=== PATIENT | male | born 1945 | race Caucasian/White ===

== ENCOUNTER 2018-05-23 10:30 | Day surgery (SDC) | payer OTHER ==
[2018-05-23 12:55] LABS: BEDSIDE GLUCOSE 154 MG/DL (83-110)
[2018-05-23] MEDS ORDERED: NS 1,000 ML IV (13:15)
[2018-05-23] MEDS ORDERED: PROPOFOL 500 MG/50 ML VIAL As Ordered (13:24)
[2018-05-23] MEDS ORDERED: LIDOCAINE 2% INJ 100 MG/5 ML SDV (FOR ANES.) As Ordered (13:24)
[2018-05-23] MEDS ORDERED: fentaNYL 100 MCG/2 ML INJECTION (J3010) As Ordered (13:24)
== END 2018-05-23 14:45 | disposition home or self-care (01) ==
LOC: M OPP 10:30
DX: Z12.11 Encounter for screening for malignant neoplasm of colon (principal); Z86.010 Personal history of colon polyps; D12.3 Benign neoplasm of transverse colon; D12.5 Benign neoplasm of sigmoid colon; K64.8 Other hemorrhoids; D50.9 Iron deficiency anemia, unspecified; K29.70 Gastritis, unspecified, without bleeding; I10 Essential (primary) hypertension; E78.5 Hyperlipidemia, unspecified; E11.9 Type 2 diabetes mellitus without complications; K21.9 Gastro-esophageal reflux disease without esophagitis; R12 Heartburn; M19.90 Unspecified osteoarthritis, unspecified site; R06.02 Shortness of breath; Z96.651 Presence of right artificial knee joint; Z87.891 Personal history of nicotine dependence; Z79.82 Long term (current) use of aspirin; Z79.899 Other long term (current) drug therapy; Z79.4 Long term (current) use of insulin
CPT/HCPCS: 45385

== ENCOUNTER 2018-10-24 06:38 | Day surgery (SDC) | payer OTHER ==
[~2018-10-24] VITALS: Ht 182.9 cm; Wt 128.4 kg
[~2018-10-24 06:38] MED LIST: ASPI81TA85 PO; HYDR25TAB PO; INSUH10VL SC; LANTINJ4 SC; METF850T4 PO; RANI150T PO; SIMV80TA13 PO; VALS1TAB48 PO; VICT18IN SC; VITA-176 PO
[2018-10-24] MEDS ORDERED: NS 1,000 ML IV ONE (07:00)
[2018-10-24] MEDS ORDERED: PROPOFOL 200 MG/20 ML VIAL As Ordered ONE (07:08)
--- NOTE | 2018-10-24 07:51 | ROOR ---
Patient Name: Everton Campos Procedure Date: 10/24/2018 7:29 AM Date of : 1945 Age: 73 Room: [facility] Gender: Male Note Status: Finalized Procedure: Colonoscopy Indications: High risk colon cancer surveillance: Personal history of colonic polyps Providers: Conrad Renee DO Referring MD: Conrad Renee DO Requesting Provider: Medicines: Propofol per Anesthesia Complications: No immediate complications. Procedure: Pre-Anesthesia Assessment: - Prior to the procedure, a History and Physical was performed, and patient medications and allergies were reviewed. The patient is competent. The risks and benefits of the procedure and the sedation options and risks were discussed with the patient. All questions were answered and informed consent was obtained. Patient identification and proposed procedure were verified by the physician, the nurse, the anesthesiologist and the microcomputer technician in the endoscopy suite. Mental Status Examination: alert and oriented. Airway Examination: normal oropharyngeal airway and neck mobility. Respiratory Examination: clear to auscultation. CV Examination: normal. Prophylactic Antibiotics: The patient does not require prophylactic antibiotics. Prior Anticoagulants: The patient has taken no previous anticoagulant or antiplatelet agents. ASA Grade Assessment: III - A patient with severe systemic disease. After reviewing the risks and benefits, the patient was deemed in satisfactory condition to undergo the procedure. The anesthesia plan was to use monitored anesthesia care (MAC). Immediately prior to administration of medications, the patient was re-assessed for adequacy to receive sedatives. The heart rate, respiratory rate, oxygen saturations, blood pressure, adequacy of pulmonary ventilation, and response to care were monitored throughout the procedure. The physical status of the patient was re-assessed after the procedure. The Colonoscope was introduced through the anus and advanced to the cecum, identified by the appendiceal orifice, ileocecal valve and palpation. The colonoscopy was performed without difficulty. The patient tolerated the procedure well. Findings: The perianal exam findings include non-thrombosed internal hemorrhoids and internal hemorrhoids (Grade I). Multiple small and large-mouthed diverticula were found in the sigmoid colon, descending colon and transverse colon. A less than 5 mm polyp was found in the transverse colon. The polyp was hyperplastic. The polyp was removed with a jumbo cold forceps. Resection and retrieval were complete. Estimated blood loss was minimal. The exam was otherwise without abnormality on direct and retroflexion views. Impression: - Non-thrombosed internal hemorrhoids and internal hemorrhoids (Grade I) found on perianal exam. - Diverticulosis in the sigmoid colon, in the descending colon and in the transverse colon. - One less than 5 mm polyp in the transverse colon, removed with a jumbo cold forceps. Resected and retrieved. - The examination was otherwise normal on direct and retroflexion views. Recommendation: - Patient has a contact number available for emergencies. The signs and symptoms of potential delayed complications were discussed with the patient. Return to normal activities tomorrow. Written discharge instructions were provided to the patient. - Repeat colonoscopy in 5-10 years for surveillance based on pathology results. - Return to my office PRN. - Telephone my office for pathology results in 1 week. Conrad Renee DO 10/24/2018 7:51:52 AM This report has been signed electronically. Number of Addenda: 0 Note Initiated On: 10/24/2018 7:29 AM Estimated Blood Loss: Estimated blood loss was minimal.
[2018-10-24 08:16] VITALS: BP 118/55
== END 2018-10-24 08:30 | disposition home or self-care (01) ==
LOC: M OPP 06:38
PROVIDERS: ATTEND Surgery
DX: Z12.11 Encounter for screening for malignant neoplasm of colon (principal); Z86.010 Personal history of colon polyps; D12.3 Benign neoplasm of transverse colon; K64.0 First degree hemorrhoids; K57.90 Diverticulosis of intestine, part unspecified, without perforation or abscess without bleeding; I10 Essential (primary) hypertension; E78.5 Hyperlipidemia, unspecified; E11.9 Type 2 diabetes mellitus without complications; K21.9 Gastro-esophageal reflux disease without esophagitis; R12 Heartburn; M19.90 Unspecified osteoarthritis, unspecified site; R06.02 Shortness of breath; Z96.651 Presence of right artificial knee joint; Z79.82 Long term (current) use of aspirin; Z79.4 Long term (current) use of insulin; Z79.899 Other long term (current) drug therapy

== ENCOUNTER → 2022-08-28 | Outpatient (CLI) | payer OTHER ==
[~2022-08-28] MED LIST changes: -ASPI81TA85 PO; +ASPI81TA86 PO; +B-12100021 PO; +CHOL1250 PO; +CYCL-707 PO; +FAMO20TA PO; +FOLI1TAB11 PO; +HYDR-3490 PO; -HYDR25TAB PO; +MELO15TA28 PO; +MYSO50TA5 PO; +SEMA1PEN2 SQ; +SIMV40TA20 PO; -VALS1TAB48 PO; +VALS1TAB68 PO
== END ==
LOC: M LABSMTC 11:14
PROVIDERS: ATTEND Anesthesiology
DX: Z01.812 Encounter for preprocedural laboratory examination (principal); Z11.52 Encounter for screening for COVID-19

== ENCOUNTER → 2022-10-04 | Outpatient (CLI) | payer OTHER ==
[~2022-10-04] MED LIST changes: +ECOT81TA5 PO
== END ==
LOC: M LABSMTC 09:12
PROVIDERS: ATTEND Anesthesiology
DX: Z01.812 Encounter for preprocedural laboratory examination (principal); Z11.52 Encounter for screening for COVID-19

== ENCOUNTER 2022-10-07 11:40 | Day surgery (SDC) | payer OTHER ==
[~2022-10-07] VITALS: Ht 182.9 cm; Wt 127.2 kg
[~2022-10-07 11:40] MED LIST changes: +NS 1,000 ML IV ONE
[2022-10-07] MEDS ORDERED: LIDOCAINE 2% INJ 100 MG/5 ML SYRINGE As Ordered ONE (14:27)
[2022-10-07] MEDS ORDERED: propofoL 200 MG/20 ML VIAL As Ordered ONE ×2 (14:27→14:51)
[2022-10-07 15:05] VITALS: BP 134/68
== END 2022-10-07 15:12 | disposition home or self-care (01) ==
LOC: M OPP 11:40
PROVIDERS: ATTEND Internal Medicine Gastroenterology
DX: K74.60 Unspecified cirrhosis of liver (principal); K29.50 Unspecified chronic gastritis without bleeding; B96.81 Helicobacter pylori [H. pylori] as the cause of diseases classified elsewhere; I85.10 Secondary esophageal varices without bleeding; K76.6 Portal hypertension; K31.89 Other diseases of stomach and duodenum; I10 Essential (primary) hypertension; E78.5 Hyperlipidemia, unspecified; E11.9 Type 2 diabetes mellitus without complications; K21.9 Gastro-esophageal reflux disease without esophagitis; K76.0 Fatty (change of) liver, not elsewhere classified; M19.90 Unspecified osteoarthritis, unspecified site; Z96.653 Presence of artificial knee joint, bilateral; Z79.4 Long term (current) use of insulin; Z79.82 Long term (current) use of aspirin; Z79.84 Long term (current) use of oral hypoglycemic drugs; Z79.899 Other long term (current) drug therapy

== ENCOUNTER 2024-08-02 09:54 | Day surgery (SDC) | payer OTHER ==
[~2024-08-02] VITALS: Ht 182.9 cm; Wt 122.0 kg
[~2024-08-02 09:54] MED LIST changes: +DILT0.05 PO; +ELIQ5TAB PO; -NS 1,000 ML IV ONE; +NS 250 ML IV ONE
[2024-08-02] MEDS ORDERED: LIDOCAINE 2% 100MG/5ML SDV (FOR ANES.) As Ordered ONE (11:54)
[2024-08-02] MEDS ORDERED: propofoL 200 MG/20 ML VIAL As Ordered ONE (11:54)
[2024-08-02 12:25] VITALS: BP 115/82; O2SAT 94
== END 2024-08-02 12:31 | disposition home or self-care (01) ==
LOC: M OPP 09:54
PROVIDERS: ATTEND Surgery
DX: Z12.11 Encounter for screening for malignant neoplasm of colon (principal); K64.8 Other hemorrhoids; K57.30 Diverticulosis of large intestine without perforation or abscess without bleeding; Z86.0100 Personal history of colon polyps, unspecified; K21.9 Gastro-esophageal reflux disease without esophagitis; I48.91 Unspecified atrial fibrillation; E11.9 Type 2 diabetes mellitus without complications; I10 Essential (primary) hypertension; E78.00 Pure hypercholesterolemia, unspecified; G47.30 Sleep apnea, unspecified; Z85.51 Personal history of malignant neoplasm of bladder; Z90.89 Acquired absence of other organs; K76.0 Fatty (change of) liver, not elsewhere classified; Z79.84 Long term (current) use of oral hypoglycemic drugs; Z79.4 Long term (current) use of insulin; Z79.899 Other long term (current) drug therapy; Z79.01 Long term (current) use of anticoagulants; Z79.85 Long-term (current) use of injectable non-insulin antidiabetic drugs; Z79.82 Long term (current) use of aspirin; Z91.048 Other nonmedicinal substance allergy status